=== PATIENT | female | born 1975 | race African-American/Black ===

== ENCOUNTER → 2016-11-29 | Outpatient (CLI) | payer OTHER ==
[~2016-11-29] MED LIST: BENZ100 PO; ERGO1CAP30 PO; FISH1000 PO; IBUP800T23 PO; IRON325T PO; METF500T PO; PRED20 PO; TAB-TAB PO; VITA-13 PO; VITA-83 PO; VITA100O PO
[2016-11-29 09:35] LABS: ANION GAP 5 MEQ/L (5-15); BICARBONATE 26.6 MEQ/L (21.0-32.0); BLOOD UREA NITROGEN 10 MG/DL (7-18); CHLORIDE 106 MEQ/L (98-107); FERRITIN 66 NG/ML (8-252); GLOMERULAR FILTRATION RATE 99 ML/MIN (>89); GLUCOSE,FASTING 85 MG/DL (74-99); HDL CHOLESTEROL 69.7 MG/DL (40.0-60.0); LDL CHOLESTEROL 143 MG/DL (0-99); POTASSIUM 3.8 MEQ/L (3.5-5.1); SODIUM (NA) 138 MEQ/L (136-145); TRANSFERRIN IRON PROFILE 220 MG/DL (200-360)
[2016-11-29 16:45] LABS: HEMOGLOBIN A1a 1.1 %; HEMOGLOBIN A1b 1.1 %; HEMOGLOBIN Ao 84.5 %; HEMOGLOBIN F 0.9 %; HEMOGLOBIN LA1C 1.8 %; HEMOGLOBIN P3 3.6 %
== END ==
LOC: CLAB 08:27
PROVIDERS: ATTEND Family Medicine
DX: D50.9 Iron deficiency anemia, unspecified (principal); R63.5 Abnormal weight gain; E78.5 Hyperlipidemia, unspecified; E55.9 Vitamin D deficiency, unspecified; R73.01 Impaired fasting glucose
CPT/HCPCS: 36415; 80048; 80061; 82306; 82728; 83036; 83540; 83550; 84443

== ENCOUNTER 2016-12-03 16:48 | Emergency (ER) | payer OTHER ==
[~2016-12-03] VITALS: Ht 162.6 cm; Wt 87.0 kg
[~2016-12-03 16:48] MED LIST changes: -BENZ100 PO; -ERGO1CAP30 PO; -METF500T PO; -PRED20 PO
[2016-12-03 16:52] VITALS: BP 123/87; PULSE 88; RESP 16; TEMP 98.5; O2SAT 100
--- NOTE | 2016-12-03 17:36 | PD ---
HPI Chief Complaint: Cold / Flu Symptoms Time Seen by Provider: 17:33 Travel History International Travel<30 days: No Contact w/Intl Traveler<30days: No Traveled to known affect area: No History of Present Illness HPI 41-year-old female presents to the emergency department for evaluation of cough and chest tightness. Patient states that 3 weeks ago she developed a productive cough with yellow sputum and chest tightness and was seen at an urgent care and prescribed antibiotics, steroids and an inhaler. States that 2 weeks ago she finished these medications and her symptoms had greatly improved. States that she felt well for 1 week and then over the last 5 days her symptoms have worsened. States that she has developed cough and chest tightness again. Minimally alleviated with inhaler. Denies any fever, chills, nausea, vomiting, sore throat, ear pain, nasal congestion, runny nose. Denies any recent travel or sick contacts. Denies any history of lung disease or asthma. Denies any smoking history. Denies . No other complaints. PFSH Past Medical History Hx Anticoagulant Therapy: No Anemia: Yes Cancer: No Cardiovascular Problems: No Diabetes: No Diminished Hearing: No Endocrine: No GERD: Yes Genitourinary: No Hepatitis: No Hiatal Hernia: No Immune Disorder: No Medical other: Yes (RAYNAUD'S SYNDROME) Musculoskeletal: No Neurologic: No Psychiatric: Yes (ANXIETY) Reproductive: Yes (RIGHT PELVIC PAIN) Respiratory: No Immunizations Current: No Thyroid Disease: No Tetanus Vaccination: > 5 Years Influenza Vaccination: Yes ?: Not Menopausal: Yes : 4 Miscarriage: 4 Ectopic : Yes (X2) Tubal Ligation: Yes (ESURE 02/25/12) Past Surgical History Abdominal Surgery: No AICD: No Body Medical Devices: ESSURE RIGHT FALLOPIAN TUBE Cardiac Surgery: No Ear Surgery: No Endocrine Surgery: No Eye Surgery: No Genitourinary Surgery: No Gynecologic Surgery: Yes (LEFT ECTOPIC PREG W/TUBE REMOVAL, TUBAL LIG. RIGHT , RIGHT SALPINGECTOMY) Joint Replacement: No Oral Surgery: Yes (WISDOM TEETH, PALATE EXPANSION) Pacemaker: No Thoracic Surgery: No Other Surgery: Yes Social History Alcohol Use: No Tobacco Use: No Substance Use: No Allergies-Medications (Allergen,Severity, Reaction): Coded Allergies: Bactrim (Verified Allergy, Severe, nausea/vomiting, 12/03/16) Hydrocodone (Verified Allergy, Severe, nausea/vomiting, 12/03/16) Sulfa (Verified Allergy, Severe, RASH, 12/03/16) RASH Percocet (Verified Allergy, Mild, NAUSEA, 12/03/16) Reported Meds & Prescriptions Reported Meds & Active Scripts Active No Active Prescriptions or Reported Medications Review of Systems Except as stated in HPI: all other systems reviewed are Neg Physical Exam Narrative GENERAL: Well-nourished and well-developed pleasant patient in no acute distress who is nontoxic appearing. SKIN: Warm and dry. HEAD: Normocephalic and atraumatic. EYES: No injection, drainage, or hyphema noted. PERRLA. EOMI. ENT: No nasal drainage noted. Oropharynx is clear and the TMs are normal with good landmarks. NECK: Supple and the trachea is midline. No lymphadenopathy is noted throughout the cervical chains. CARDIOVASCULAR: Regular rate and rhythm. RESPIRATORY: Breath sounds are equal bilaterally with no accessory muscle use, wheezing, rhonchi, or crackles. MUSCULOSKELETAL: No obvious deformities, swelling, cyanosis, or ecchymosis is present throughout the upper and lower extremities. Patient has full range of motion without any signs of neurovascular compromise. NEUROLOGICAL: Awake, alert, and oriented. Normal speech and gait. Cranial nerves are grossly intact. Data Data Last Documented VS Vital Signs Date Time Temp Pulse Resp B/P Pulse Ox O2 Delivery O2 Flow Rate FiO2 12/03/16 17:00 18 100 Room Air 12/03/16 16:52 98.5 88 123/87 Orders Chest, Pa & Lat (12/03/16 17:32) MDM Medical Decision Making Medical Screen Exam Complete: Yes Emergency Medical Condition: Yes Differential Diagnosis Acute bronchitis versus recurrent bronchitis versus pneumonia versus pleurisy versus pleural effusion versus other Narrative Course 41-year-old female presents to the emergency department for evaluation of cough and chest tightness. Patient is afebrile, vital signs are stable. Physical examination is unremarkable. Lungs are clear to auscultation. Oxygen saturation is 100% on room air. Chest x-ray has been ordered and is pending. Chest x-ray is negative for any acute abnormalities. Patient has remained stable without complaint while here in the ED. Physical examination is unremarkable. The patient was just recently given a round of antibiotics. I don't think that she would benefit from another prescription of antibiotics, I suspect that this is likely viral in etiology. The patient will be given prednisone and antitussives. Discussed supportive care. She is encouraged to follow-up with her PCP. Patient verbalizes understanding and agreement with treatment plan. Diagnosis Primary Impression: Acute bronchitis Qualified Code: J20.9 - Acute bronchitis, unspecified organism Referrals: Primary Care Physician Patient Instructions: Acute Bronchitis (ED), General Instructions Additional Instructions: Take [id number] Mucinex DM. Use your inhaler as prescribed. Take medications as prescribed with food and a full glass of water. Follow-up with your Primary Care Physician. Return to the ED for any acute worsening of symptoms. Med/Other Pt SpecificInfo: Prescription(s) given Scripts No Active Prescriptions or Reported Meds Disposition: 01 DISCHARGE HOME Condition: Stable Greta Senior Dec 03, 2016 17:36
--- NOTE | 2016-12-03 17:59 | RADHPO ---
EXAM DATE/TIME: 12/03/2016 17:44 [facility] COMPARISON: No previous studies available for comparison. INDICATIONS : Cough. MEDICAL HISTORY : None. SURGICAL HISTORY : None. ENCOUNTER: Initial ACUITY: 3 weeks PAIN SCORE: 5/10 LOCATION: Bilateral chest FINDINGS: The lungs are clear without infiltrate, nodule, or mass. There is no appreciable pleural effusion fo r technique. Heart and mediastinum are unremarkable. CONCLUSION: No acute cardiopulmonary disease. Gely Alejo MD on December 03, 2016 at 17:57 Board Certified Radiologist. This report was verified electronically.
[2016-12-03] MEDS ORDERED: PRED20 PO (18:06)
[2016-12-03] MEDS ORDERED: BENZ100 PO (18:06)
[2016-12-06] MEDS ORDERED: ERGO1CAP30 PO (14:21)
[2016-12-06] MEDS ORDERED: METF500T PO (14:23)
== END 2016-12-03 18:15 | disposition home or self-care (01) ==
LOC: PHEFT 16:48
DX: J20.9 Acute bronchitis, unspecified (principal); Z86.2 Personal history of diseases of the blood and blood-forming organs and certain disorders involving the immune mechanism; Z87.19 Personal history of other diseases of the digestive system; Z86.59 Personal history of other mental and behavioral disorders; Z86.79 Personal history of other diseases of the circulatory system
CPT/HCPCS: 71020; 99283